=== PATIENT | female | born 1995 | race Asian ===

== ENCOUNTER 2020-08-22 19:27 | Emergency (ER) | payer OTHER, MEDICAID ==
[~2020-08-22] VITALS: Ht 154.9 cm; Wt 92.1 kg
[2020-08-22 19:38] VITALS: Ht 154.9 cm; Wt 92.1 kg
[2020-08-22 21:17] VITALS: BP 125/79
== END 2020-08-22 21:17 | disposition home or self-care (01) ==
LOC: ED 19:27
DX: S16.1XXA Strain of muscle, fascia and tendon at neck level, initial encounter (principal); R51.9 Headache, unspecified; V49.49XA Driver injured in collision with other motor vehicles in traffic accident, initial encounter; Y93.I9 Activity, other involving external motion; Y92.488 Other paved roadways as the place of occurrence of the external cause; Y99.8 Other external cause status